=== PATIENT | male | born 1960 | race Caucasian/White ===

== ENCOUNTER 2022-03-25 10:40 | Emergency (ER) | payer MEDICARE, SELFPAY ==
[2022-03-25 10:42] VITALS: BP 133/81; PULSE 57; RESP 20; TEMP 36.8; O2SAT 100; BMI 29.1
--- NOTE | 2022-03-25 10:48 | ECG_ITS ---
APPROVED REPORT Exam: Resting ECG HR:58 bpm ECG Measurements Heart Rate 58 AXES MD 189 P 5 QRSd 113 QRS -7 QT 458 T -4 QTc 454 Conclusion SINUS BRADYCARDIA INCOMPLETE RIGHT BUNDLE BRANCH BLOCK [90+ ms QRS DURATION, TERMINAL R IN V1/V2, 40+ ms S IN I/aVL/V4/V5/V6] BORDERLINE ECG UNCONFIRMED REPORT Electronically signed by : Lester Zhu MD 03/26/2022 16:50:00
[2022-03-25 11:01] VITALS: BP 133/81; PULSE 59; RESP 18; O2SAT 100; BMI 29.1
--- NOTE | 2022-03-25 11:04 | XR_ITS ---
FINAL REPORT CLINICAL HISTORY: weakness, low bp, dizziness FINDINGS: Two views of the chest were obtained. The heart size and pulmonary vascularity are within normal limits. The mediastinum is normal. No acute pulmonary abnormality is identified. There is no pneumothorax. The bony thorax is intact. IMPRESSION: No active cardiopulmonary disease. Reviewed, Interpreted and Dictated by Vineet Wilkinson III, MD Transcribed by Camila Walker Authenticated and [facility]
[2022-03-25 11:18] LABS: Chloride 103 mmol/L (98-107); Potassium 3.9 mmoL/L (3.5-5.1); Sodium 139 mmol/L (136-145)
[2022-03-25 11:20] LABS: Blood Urea Nitrogen 16 mg/dl (9-20); Creatinine Clearance Estimated 106 mL/min (50-200); Estimated Glomerular Filt Rate 98 ml/min (>60); GFR (African American) 119 ML/MIN (>60)
[2022-03-25 11:21] LABS: Alanine Aminotransferase 80 U/L (12-78); Albumin Level 4.3 g/dl (3.5-5.0); Albumin/Globulin Ratio 1.6 (1.1-1.8); Alkaline Phosphatase 92 U/L (38-126); Anion Gap 9.9 mEq/L (5-15); Aspartate Amino Transferase 48 U/L (17-59); Bilirubin,Total 0.5 mg/dl (0.2-1.3); Calcium 9.5 mg/dl (8.4-10.2); Carbon Dioxide 30 mmol/L (22.0-30.0); Globulin 2.7 g/dL (1.3-3.2); Glucose 100 mg/dl (74-100)
--- NOTE | 2022-03-25 11:22 | HMH.EDGENADL ---
Discharge Plan Disposition Patient Disposition: Home, Self-Care Condition: Good Chief Complaint: Weakness Referrals Follow up/Referrals: Provider,Referral, [Primary Care Provider] - See instructions Activity Restrictions/Add. Instructions Additional Instructions/Restrictions: Follow-up with your primary care provider for further care and evaluation and to discuss your blood pressure medications and schedule for taking medications. Return to emergency department if symptoms worsen. Clinical Impressions Clinical Impression: Low blood pressure reading, Headache, Generalized weakness Discharge ED Provider: Steven Melgar General Adult HPI General Chief complaint: Weakness Stated complaint: Weakness, low BP, dizzy Time Seen by Provider: 03/25/22 11:30 History of Present Illness HPI narrative: History obtained from patient and . He awakened at 3 AM this morning feeling bad. He had a headache. He was going to go to the bathroom but was so weak he could not get out of bed. He states he did not feel that he could even think straight. says she took his vital signs and his blood pressure was 108 systolic with heart rate in the 60s. She says she wanted to call 911 but could not convince him to go to the hospital. This morning he awakened around 6 and she rechecked his vital signs. Blood pressure was in the 80s. He still has a frontal headache. He denies any other pain. No visual disturbance. No chest pain or shortness of breath. No nausea or vomiting. He feels weak. states that 3 weeks ago he had sore throat, cough. He got checked by his primary care provider and was negative for RSV, flu, and COVID. States he still has a little bit of a cough. She states he has had several episodes where he wakes up in the middle of the night with symptoms. This episode was different. Previously he has had high blood pressure, heart racing, shaking. states no cause has been found. She states on recent evaluations by primary care provider his liver enzymes have been a little elevated protein has been low., Related Data Allergies Allergy/AdvReac Type Severity Reaction Status Date / Time No Known Allergies Allergy Verified 03/25/22 11:03 [facility] Disclaimer: The information contained in this section may have been updated after the patient was seen, as this information can be updated by other users. Social History Smoking Status: Never smoker ROS Obtained: Yes Systems reviewed as appropriate & no additional complaints except as documented Constitutional Constitutional: Denies fever(s), Reports headache(s) and Reports weakness ENT Ears, Nose, Mouth, and Throat: Reports as per HPI (Recent illness with sore throat), Reports headache(s), Denies nasal discharge and Denies sore throat Cardiovascular Cardiovascular: Denies chest pain Respiratory Respiratory: Denies shortness of breath and Reports cough Gastrointestinal Gastrointestingal: Denies abdominal pain, constipation, diarrhea or vomiting Genitourinary Male Genitourinary: Denies difficulty urinating and Denies flank pain Musculoskeletal Musculoskeletal: Denies numbness Neurologic Neurologic: Reports headache(s), Denies numbness and Reports weakness Physical Exam General General appearance: alert and in no apparent distress Head Head exam: atraumatic and normocephalic Eye Eye exam: Present normal appearance and EOMI ENT ENT exam: Present mucous membranes moist Neck Neck exam: Present normal inspection and trachea midline Chest Chest inspection: Present normal inspection and symmetric chest wall rise Respiratory Respiratory exam: Present normal lung sounds bilaterally; Absent respiratory distress Cardiovascular Cardiovascular exam: Present regular rate, normal rhythm and normal heart sounds Abdominal Exam Abdominal exam: Present soft and normal bowel sounds; Absent distention, tenderness, guarding, rebound or rigidity Extremities Exam Extre
[2022-03-25 11:26] LABS: Basophils % 0.5 % (0.1-2.0); Eosinophils # 0.1 K/mm3 (0.0-0.4); Eosinophils % 0.8 % (0.1-12.0); Hematocrit 43.8 % (42.0-52.0); Hemoglobin 14.5 g/dL (14.1-18.0); Lymphocytes # 1.6 K/mm3 (0.7-4.5); Lymphocytes % 28.3 % (10-50); Mean Corpuscular HGB Conc 33.2 g/dL (31.8-35.4); Mean Corpuscular Hemoglobin 29.7 pg (27.0-31.2); Mean Corpuscular Volume 89.5 fl (80-94); Mean Platelet Volume 7.8 fl (7.4-10.4); Monocytes # 0.4 K/mm3 (0.1-1.0); Monocytes % 6.3 % (1.7-9.3); Neutrophils # 3.6 K/mm3 (1.8-7.8); Platelet Count 327 K/mm3 (142-424); Red Blood Count 4.89 M/mm3 (4.60-6.20); Red Cell Distribution Width 13.2 % (11.5-17.5); White Blood Count 5.6 K/mm3 (4.8-10.8)
[2022-03-25 11:34] LABS: Coronavirus 19, PCR Not Detected (NotDetected); Influenza A, PCR Not Detected (NotDetected); Influenza B, PCR Not Detected (NotDetected)
[2022-03-25 11:39] LABS: Troponin I < 0.01 ng/ml (0.00-0.034)
[2022-03-25 11:46] VITALS: BP 136/64; PULSE 55; RESP 16; O2SAT 100
--- NOTE | 2022-03-25 11:46 | CT_ITS ---
FINAL REPORT CLINICAL HISTORY: headache, DIZZINESS, HYPOTENSION FINDINGS: Axial images of the head were obtained without contrast. Coronal reformatted images were also obtained.This study was performed with techniques to keep radiation doses as low as reasonably achievable (ALARA). Individualized dose reduction techniques using automated exposure control or adjustment of mA and/or kV according to the patient''s size were employed. There is no evidence of intracranial hemorrhage or mass. The ventricular size is within normal limits. There is no evidence of shift of the midline structures. No abnormal extra axial fluid collection is identified. No skull abnormality is seen on the bone window images. IMPRESSION: No acute intracranial abnormality. Authenticated and [facility]
[2022-03-25 12:01] VITALS: BP 135/63; PULSE 57; RESP 18; O2SAT 100
[2022-03-25 12:01] LABS: Creatine Kinase 112 U/L (55-170)
[2022-03-25 12:19] LABS: Triiodothryronine (T3) Uptake 40 % (23.5-40.5)
[2022-03-25 12:20] LABS: Free Thyroxine Index 3.4 ug/dL (5.93-13.13); T4 (Thyroxine) 8.4 ug/dl (5.53-11.0)
[2022-03-25 12:29] LABS: Lactic Acid 1.1 mmol/L (0.7-2.1)
[2022-03-25 12:34] LABS: Thyroid Stimulating Hormone 0.95 uIU/mL (0.465-4.68)
[2022-03-25 12:40] LABS: Microscopic, Urine URINE MICROSCOPIC (MICROSCOPIC)
[2022-03-25 12:45] LABS: Appearance,Urine CLEAR (Clear); Bilirubin,Urine Negative (Negative); Blood, Urine Negative (Negative); Color,Urine YELLOW (Yellow); Glucose,Urine (UA) Negative (Negative); Ketones,Urine Negative (Negative); Leukocyte Esterase,Urine Negative (Negative); Nitrate,Urine Negative (Negative); Protein,Urine Negative (Negative); Specific Gravity, Urine 1.015 (1.005-1.030); Urobilinogen,Urine 0.2 EU/dl (0.2)
[2022-03-25 12:59] LABS: Squamous Epithelial Cell,Urine Occasional #/hpf (0-5)
[2022-03-25 13:55] VITALS: BP 135/63; PULSE 69; RESP 18; TEMP 36.8; O2SAT 100
== END 2022-03-25 13:58 | disposition home or self-care (01) ==
PROVIDERS: Emergency Provider Emergency Medicine
DX: R51.9 Headache, unspecified (principal); R53.1 Weakness; R03.1 Nonspecific low blood-pressure reading
CPT/HCPCS: 70450; 71046; 80053; 81001; 82550; 83605; 84436; 84443; 84479; 84484; 85025; 87040; 93005; 96365; 99285; C9803; U0003; U0005